=== PATIENT | female | born 1980 | race Two or more races ===

== ENCOUNTER 2018-01-15 03:44 | Emergency (ER) | payer OTHER, SELFPAY ==
[2018-01-15] MEDS ORDERED: Lidocaine 1% PF 5 ML VIAL ONE (03:56)
[2018-01-15] MEDS ORDERED: Ketorolac Tromethamine 30 MG/ML VIAL ONE (05:00)
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
== END 2018-01-15 05:52 | disposition home or self-care (01) ==
LOC: ERS 03:44
DX: M54.2 Cervicalgia (principal)
CPT/HCPCS: 64461; 72040; 96372; J1885; J2001